=== PATIENT | male | born 1965 | race Hispanic/Latino ===

== ENCOUNTER 2018-03-22 12:04 | Emergency (ER) | payer OTHER ==
[~2018-03-22] VITALS: Ht 165.1 cm; Wt 99.8 kg
--- OUTSIDE RECORDS SUMMARY | 2018-03-22 12:06 | XMS REPORT | Clinical Summary ---
Author Author VIRGIL [facility] [place] Address Unknown Phone Unavailable Care Team Providers Care Professional Application Designer Name Role Phone Sharpless PCP Allergies Comments Active Allergy Reactions Severity Noted Date Dizzy and constipated Sitagliptin Other (See 06/24/2017 Comments) Medications End Date Status Medication Sig Dispensed Refills Start Date Active insulin glargine (LANTUS) Inject 25 0 100 unit/mL injection Units subcutaneousl y nightly Use as directed . Active lisinopril Take 10 mg by 0 (PRINIVIL,ZESTRIL) 10 MG mouth daily. tablet Active glyBURIDE-metFORMIN Take 2 0 (GLUCOVANCE) 5-500 mg per tablets by tablet mouth 2 (two) times daily with breakfast and dinner. Active nateglinide (STARLIX) 120 Take 120 mg 0 MG tablet by mouth 3 (three) times daily before meals. 06/26/2018 Active aspirin 81 MG EC tablet Take 1 tablet 0 (81 mg total) 8 by mouth daily. 2017 Discontinued metFORMIN (GLUMETZA) 1000 Take 1,000 mg 0 MG (MOD) 24 hr tablet by mouth 2 (two) times daily with breakfast and dinner. 2017 Discontinued glipiZIDE (GLUCOTROL) 5 Take 5 mg by 0 MG tablet mouth 3 (three) times daily with meals. Active Problems Problem Noted Date Atypical chest pain 2017 Uncontrolled type 2 diabetes mellitus with hyperglycemia, with long-term 06/24/2017 current use of insulin Encounters Care Team Description Date Type Specialty Luba, DO Lisa López Anita, MD Alagugurusamy, Rajkumar, MD Uncontrolled type 2 diabetes mellitus with hyperglycemia, with long-term current use of insulin (HCC) (Primary Dx); Uncontrolled hypertension; ACS (acute coronary syndrome) ([facility]) 06/24/2017 Emergency Cardiology - 2017 06/24/2017 Orders Only General Internal Medicine after 03/21/2017 Social History Date Tobacco Use Types Packs/Day Years Used Former Smoker Smokeless Tobacco: Never Used Sex Assigned at Date Recorded Not on file Industry Job Start Date Occupation Not on file Not on file Not on file Travel End Travel History Travel Start No recent travel history available. Last Filed Vital Signs Time Taken Vital Sign Reading 2017 3:46 PM CDT Blood Pressure 139/69 2017 3:46 PM CDT Pulse 57 2017 3:46 PM CDT Temperature 36.2 C (97.2 F) 2017 3:46 PM CDT Respiratory Rate 14 2017 3:46 PM CDT Oxygen Saturation 97% - Inhaled Oxygen - Concentration 06/24/2017 10:02 PM CDT Weight 96.6 kg (212 lb 16 oz) 06/24/2017 10:02 PM CDT Height 165.1 cm (5' 5") 06/24/2017 10:02 PM CDT Body Mass Index 35.44 Plan of Treatment Not on file Procedures Comments Procedure Name Priority Date/Time Associated Diagnosis RHYTHM STRIP - SCAN 06/29/2017 12:02 PM CDT POCT-GLUCOSE METER Routine 2017 3:52 PM CDT NM MYOCARDIAL PERFUSION Routine 2017 SPECT, PHARM(LEXISCAN) 3:10 PM CDT TREADMILL Routine 2017 TOLERANCE(NON-NUCLEAR 1:38 PM CDT TREADMILL) ECG 12-LEAD Routine 2017 1:35 PM CDT ECG 12-LEAD Routine 2017 1:35 PM CDT Procedure Note - Interface, External Ris In - 2017 1:48 PM CDT Ventricula r Rate 59 BPM Atrial Rate 59 BPM P-R Interval 154 ms QRS Duration 94 ms Q-T Interval 448 ms QTC Calculatio n(Bazett) 443 ms P Lincoln 34 degrees R Lincoln -3 degrees T Lincoln 44 degrees Sinus bradycardi a Otherwise normal ECG POCT-GLUCOSE METER Routine 2017 8:57 AM CDT CBC W/PLT COUNT & AUTO Routine 2017 DIFFERENTIAL 3:48 AM CDT TROPONIN I Routine 2017 3:48 AM CDT LIPID PANEL Routine 2017 3:48 AM CDT HEMOGLOBIN A1C Routine 2017 3:48 AM CDT CBC W/PLT COUNT & AUTO Routine 2017 DIFFERENTIAL 3:48 AM CDT PHOSPHORUS Routine 2017 3:48 AM CDT MAGNESIUM Routine 2017 3:48 AM CDT BASIC METABOLIC PANEL (7) Routine 2017 3:48 AM CDT POCT-GLUCOSE METER Routine 06/24/2017 10:30 PM CDT XR CHEST 2 VIEWS STAT 06/24/2017 4:08 PM CDT CBC W/PLT COUNT & AUTO STAT 06/24/2017 DIFFERENTIAL 4:01 PM CDT KETONE, BLOOD STAT 06/24/2017 4:01 PM CDT RAPID TROPONIN I STAT 06/24/2017 4:01 PM CDT B-TYPE NATRIURETIC FACTOR STAT 06/24/2017 (BNP) 4:01 PM CDT RAPID MYOGLOBIN STAT 06/24/2017 4:01 PM CDT RAPID CK-MB STAT 06/24/2017 4:01 PM CDT PT/APTT STAT 06/24/2017 4:01 PM CDT CBC W/PLT COUNT & AUTO STAT 06/24/2017 DIFFERENTIAL 4:01 PM CDT MAGNESIUM STAT 06/24/2017 4:01 PM CDT BASIC METABOLIC PANEL (7) STAT 06/24/2017 4:01 PM CDT ECG 12-LEAD STAT 06/24/2017 3:31 PM CDT after 03/21/2017 Results * RHYTHM STRIP - SCAN (06/29/2017 12:02 PM CDT) Narrative Performed At * POC-Glucose meter (2017 3:52 PM CDT) Only the most recent of 3 results within the time period is included. POC-Glucose Meter 258 (H)Comment: TESTED AT 70 - 110 mg/dL [facility] [address] [facility] [address] Specimen Blood Performing Organization Address City/State/Zipcode Phone Number [address] [address] [facility] * NM myocardial perfusion SPECT,pharm(Lexiscan) (2017 3:10 PM CDT) Narrative Performed At FINAL REPORT [facility] PROCEDURE:Rest/Stress MYOCARDIAL PERFUSION SPECT with regadenoson\\XA9\\ CPT CODE:05886 INDICATION:Cardiac risk stratification HISTORY:Cardiac risk factors: Diabetes, hypertension. Current cardiovascular-related medications: Aspirin, atorvastatin, lisinopril, Lovenox. PROTOCOL:10.4 mCi of Tc-99m sestamibi was injected iv at rest, and SPECT (tomographic) images were obtained. Also, 29.1 mCi of Tc-99m sestamibi was injected iv at expected peak pharmacologic effect, and gated SPECT images were obtained. PRELIMINARY STRESS TEST DATA FROM NONINVASIVE CARDIOLOGY: Pharmacologic stress was by 10-second iv infusion of 0.4 mg of regadenoson. Radiotracer was injected 30 seconds after start of stress. Heart rate was 59 beats/min at rest and 80 beats/min (47 % of MPHR) at tracer injection. BP was 130/83 mmHg at rest and 120/60 mmHg at tracer injection. Stress was stopped for predetermined endpoint. The patient experienced headaches, flushing, dyspnea; treatment was not required. Preliminary ECG evaluation revealed sinus bradycardia at rest and no ischemic changes with stress. (Final ECG interpretation and other stress and monitoring data are reported separately by Cardiology.) IMAGING FINDINGS:Study quality is good. Images obtained after rest and stress injections show normal LV activity. LV and RV volumes appear normal. Gated images obtained at rest after stress show normal LV wall motion and thickening. QGS LVEF is >70%. IMPRESSION: 1. Normal study.2. Appropriate pharmacologic stress. 3. Normal myocardial perfusion.4. Normal resting LV function.5. Normal extracardiac tracer distribution.6. No previous [facility] study for comparison. NONINVASIVE RISK STRATIFICATION: The above findings are considered low risk (<1% annual or MT) based on the following criterion: - Normal or small myocardial perfusion defect at rest or with stress encumbering <5% of the myocardium - Normal stress or no change of limited resting wall motion abnormalities during stress ([facility]. 2017;69(23):3042-41.) Signed: Michele Veliz MD Report Verified Date/Time:2017 17:24:12 Reading Location: [address] Reading Room Procedure Note Interface, External Ris In - 2017 5:26 PM CDT FINAL REPORT PROCEDURE: Rest/Stress MYOCARDIAL PERFUSION SPECT with regadenoson\\XA9\\ CPT CODE: 68745 INDICATION: Cardiac risk stratification HISTORY: Cardiac risk factors: Diabetes, hypertension. Current cardiovascular-related medications: Aspirin, atorvastatin, lisinopril, Lovenox. PROTOCOL: 10.4 mCi of Tc-99m sestamibi was injected iv at rest, and SPECT (tomographic) images were obtained. Also, 29.1 mCi of Tc-99m sestamibi was injected iv at expected peak pharmacologic effect, and gated SPECT images were obtained. PRELIMINARY STRESS TEST DATA FROM NONINVASIVE CARDIOLOGY: Pharmacologic stress was by 10-second iv infusion of 0.4 mg of regadenoson. Radiotracer was injected 30 seconds after start of stress. Heart rate was 59 beats/min at rest and 80 beats/min (47 % of MPHR) at tracer injection. BP was 130/83 mmHg at rest and 120/60 mmHg at tracer injection. Stress was stopped for predetermined endpoint. The patient experienced headaches, flushing, dyspnea; treatment was not required. Preliminary ECG evaluation revealed sinus bradycardia at rest and no ischemic changes with stress. (Final ECG interpretation and other stress and monitoring data are reported separately by Cardiology.) IMAGING FINDINGS: Study quality is good. Images obtained after rest and stress injections show normal LV activity. LV and RV volumes appear normal. Gated images obtained at rest after stress show normal LV wall motion and thickening. QGS LVEF is >70%. IMPRESSION: 1. Normal study. 2. Appropriate pharmacologic stress. 3. Normal myocardial perfusion. 4. Normal resting LV function. 5. Normal extracardiac tracer distribution. 6. No previous [facility] study for comparison. NONINVASIVE RISK STRATIFICATION: The above findings are considered low risk (<1% annual or MT) based on the following criterion: - Normal or small myocardial perfusion defect at rest or with stress encumbering <5% of the myocardium - Normal stress or no change of limited resting wall motion abnormalities during stress ([facility]. 2017;69(17):2212-41.) Signed: Michele Veliz MD Report Verified Date/Time: 2017 17:24:12 Reading Location: [address] Reading Room Performing Organization Address City/State/Zipcode Phone Number GE RIS * Treadmill tolerance(Non-Nuclear Treadmill) (2017 1:38 PM CDT) Narrative Performed At Protocol Name SustainX Time In Exercise Phase 00:01:00 Max. Systolic BP 120 mmHg Max Diastolic BP 60 mmHg Max Heart Rate 80 BPM Max Predicted Heart Rate 168 BPM Reason For Termination Predetermined end point Reason for Test Chest Pain Target HR Formula (220 - Age)*100% Arrhythmias none Resting ECG Normal sinus rhythm ST Changes No Significant Changes Overall Impression Indeterminate due to pharmacological stress Chest Pain none HR Response To Exercise BP Response To Exercise ASA Atorvastatin LISINOPRIL lovenox Confirmed by fellow Daysi Rodriguez ([id number]) on 2017 2:41:22 PM Confirmed by MD SERRATO JORGE ([id number]) on 07/01/2017 2:37:53 PM Procedure Note Interface, External Ris In - 07/01/2017 2:38 PM CDT Protocol Name [employer] Time In Exercise Phase 00:01:00 Max. Systolic BP 120 mmHg Max Diastolic BP 60 mmHg Max Heart Rate 80 BPM Max Predicted Heart Rate 168 BPM Reason For Termination Predetermined end point Reason for Test Chest Pain Target HR Formula (220 - Age)*100% Arrhythmias none Resting ECG Normal sinus rhythm ST Changes No Significant Changes Overall Impression Indeterminate due to pharmacological stress Chest Pain none HR Response To Exercise BP Response To Exercise ASA Atorvastatin LISINOPRIL lovenox Confirmed by fellow Daysi Rodriguez ([id number]) on 2017 2:41:22 PM Confirmed by MD SERRATO JORGE ([id number]) on 07/01/2017 2:37:53 PM Performing Organization Address [facility] Phone Number [employer] MUSE * ECG 12 lead (2017 1:35 PM CDT) Only the most recent of 2 results within the time period is included. Narrative Performed At Ventricular Rate 59 BPM GE MUSE Atrial Rate 59 BPM P-R Interval 154 ms QRS Duration 94 ms Q-T Interval 448 ms QTC Calculation(Bazett) 443 ms P Lincoln 34 degrees R Lincoln -3 degrees T Lincoln 44 degrees Sinus bradycardia Cannot exclude inferior infarct 24 JUN 2017 24 JUN 2017 Tall R waves are no longer seen in V2 Confirmed by MD GARCIA YOCHAI ([id number]) on 06/26/2017 5:59:35 AM Procedure Note Interface, External Ris In - 06/26/2017 5:59 AM CDT Ventricular Rate 59 BPM Atrial Rate 59 BPM P-R Interval 154 ms QRS Duration 94 ms Q-T Interval 448 ms QTC Calculation(Bazett) 443 ms P Lincoln 34 degrees R Lincoln -3 degrees T Lincoln 44 degrees Sinus bradycardia Cannot exclude inferior infarct 24 JUN 2017 24 JUN 2017 Tall R waves are no longer seen in V2 Confirmed by MD GARCIA YOCHAI ([id number]) on 06/26/2017 5:59:35 AM Performing Organization Address [facility] Phone Number [employer] * CBC with platelet count + automated diff (2017 3:48 AM CDT) Only the most recent of 2 results within the time period is included. WBC 10.5 3.5 - 10.5 K/L [facility] RBC 5.21 4.63 - 6.08 M/L [facility] Hemoglobin 13.7 13.7 - 17.5 GM/DL [facility] Hematocrit 42.4 40.1 - 51.0 % [facility] MCV 81.4 79.0 - 92.2 fL [facility] MCH 26.3 25.7 - 32.2 pg [facility] MCHC 32.3 32.3 - 36.5 GM/DL [facility] RDW 13.6 11.6 - 14.4 % [facility] Platelets 207 150 - 450 K/CU MM [facility] MPV 11.3 9.4 - 12.4 fL [facility] nRBC 0 0 - 0 /100 WBC [facility] % Neutros 50 % [facility] % Lymphs 41 % [facility] % Monos 6 % [facility] % Eos 3 % [facility] % Baso 1 % [facility] # Neutros 5.24 1.78 - 5.38 K/L [facility] # Lymphs 4.23 (H) 1.32 - 3.57 K/L [facility] # Monos 0.60 0.30 - 0.82 K/L [facility] # Eos 0.30 0.04 - 0.54 K/L [facility] # Baso 0.06 0.01 - 0.08 K/L [facility] Immature 0 0 - 1 % [facility] Granulocytes-[facility] Specimen Blood Performing Organization Address City/State/Zipcode Phone Number [facility] [address] [place] [address] MEDICAL CENTER * Troponin I (2017 3:48 AM CDT) Troponin I <0.01 0.00 - 0.03 ng/mL [facility] Specimen Blood Narrative Performed At Troponin I (TnI) levels must be interpreted in the context of the presenting [facility] symptoms and the clinical findings. Elevated TnI levels indicate myocardial [facility] damage, but are not specific for ischemic heart disease. Elevated TnI levels are seen in patients with other cardiac conditions (including myocarditis and congestive heart failure), and slight TnI elevations occur in patients with other conditions, including sepsis, renal failure, acidosis, acute neurological disease, and persistent tachyarrhythmia. Performing Organization Address City/[facility] Phone Number [address] * Phosphorus (2017 3:48 AM CDT) Phosphorus 2.7 2.3 - 4.7 mg/dL [facility] Specimen Blood Performing Organization Address [facility] Phone Number [address] * Magnesium (2017 3:48 AM CDT) Only the most recent of 2 results within the time period is included. Magnesium 1.9 1.6 - 2.6 mg/dL [facility] Specimen Blood Performing Organization Address [facility] Phone Number [address] * Hemoglobin A1c (2017 3:48 AM CDT) Hemoglobin A1C 13.1 (H) 4.3 - 6.1 % [facility] Specimen Blood Performing Organization Address [facility] Phone Number [address] * Lipid panel (2017 3:48 AM CDT) Triglycerides 195 mg/dL [facility] Cholesterol 188 mg/dL [facility] HDL 35 mg/dL [facility] LDL Calculated 114 mg/dL [facility] Specimen Blood Narrative Performed At Triglyceride Reference Range: [facility] Low Risk <150 [facility] [id number] High Risk 200-499 Very High Risk>=500 Cholesterol Reference Range: Low Risk <200 [id number] High Risk>240 HDL Cholesterol Reference Range: Low Risk >=60 High Risk <40 LDL Cholesterol Reference Range: Optimal<100 Near [id number] Very High >=190 Performing Organization Address City/State/Zipcode Phone Number [facility] [address] [place] [address] [facility] * Basic metabolic panel (2017 3:48 AM CDT) Only the most recent of 2 results within the time period is included. Sodium 136 136 - 145 meq/L [facility] Potassium 4.0 3.5 - 5.1 meq/L [facility] Chloride 107 98 - 107 meq/L [facility] CO2 22 22 - 29 meq/L [facility] BUN 16 7 - 21 mg/dL [facility] Creatinine 0.74 0.57 - 1.25 mg/dL [facility] Glucose 244 (H) 70 - 105 mg/dL [facility] Calcium 8.4 8.4 - 10.2 mg/dL [facility] EGFR 111Comment: ESTIMATED GFR IS mL/min/1.[address] [facility] NOT ACCURATE CREATININE [facility] CLEARANCE IN PREDICTING GLOMERULAR FILTRATION RATE. ESTIMATED GFR IS NOT APPLICABLE FOR DIALYSIS PATIENTS. Specimen Blood Performing Organization Address City/[facility]/Zipcode Phone Number [facility] [address] [place] [address] [facility] * XR chest 2 views (06/24/2017 4:08 PM CDT) Narrative Performed At FINAL REPORT [facility] EXAM: Frontal chest radiograph HISTORY PROVIDED: Chest pain COMPARISON: None available IMPRESSION: Lung volumes are low. There is elevation of the right hemidiaphragm. Left greater than right bibasilar opacities likely represent atelectasis, although pneumonitis should be excluded clinically. No pneumothorax or significant pleural fluid. The cardiomediastinal silhouette is within normal limits. No acute osseous abnormality. Signed: Desiree Fernández MD Report Verified Date/Time:06/24/2017 16:20:13 Reading Location: [facility] Reading Room Procedure Note Interface, External Ris In - 06/24/2017 4:22 PM CDT FINAL REPORT EXAM: Frontal chest radiograph HISTORY PROVIDED: Chest pain COMPARISON: None available IMPRESSION: Lung volumes are low. There is elevation of the right hemidiaphragm. Left greater than right bibasilar opacities likely represent atelectasis, although pneumonitis should be excluded clinically. No pneumothorax or significant pleural fluid. The cardiomediastinal silhouette is within normal limits. No acute osseous abnormality. Signed: Desiree Fernández MD Report Verified Date/Time: 06/24/2017 16:20:13 Reading Location: [facility] Reading Room Performing Organization Address City/[facility] Phone Number RIS * Rapid Myoglobin (06/24/2017 4:01 PM CDT) Rapid Myoglobin 34 <107 ng/mL [facility], [facility] Specimen Blood Performing Organization Address [facility] Phone Number [address] [address] [facility], [facility], [facility] * Rapid Troponin I (06/24/2017 4:01 PM CDT) Rapid Troponin I <0.05 <0.05 ng/mL [facility], [facility] Specimen Blood Performing Organization Address [facility] Phone Number [address] [place] [id number] [facility], [facility], [facility] * Rapid CK-MB (06/24/2017 4:01 PM CDT) Rapid CKMB <1.0 0.0 - 4.3 ng/mL [facility], [facility], [facility] Specimen Blood Performing Organization Address City/[facility] Phone Number [facility] [address] [place] [address] [facility], [facility] * PT/PTT (06/24/2017 4:01 PM CDT) Protime 9.7 (L) 9.8 - 12.0 seconds [facility] INR 0.9 <=5.9 [facility] PTT 23.5 (L) 25.8 - 34.5 seconds [facility] Specimen Blood Narrative Performed At RECOMMENDED COUMADIN/WARFARIN INR THERAPY RANGES [facility] STANDARD DOSE: 2.0 - 3.0 Includes: PROPHYLAXIS for venous thrombosis, [facility] systemic embolization; TREATMENT for venous thrombosis and/or pulmonary embolus. [facility] HIGH RISK: Target INR is 2.5-3.5 for patients with mechanical heart valves. [facility] C[facility], [facility] Performing Organization Address City/[facility] Centercode Phone Number [facility] [address] [place], [place] [phone] [facility], [facility], [facility] * B-type Natriuretic Factor (BNP) (06/24/2017 4:01 PM CDT) BNP 14 0 - 100 pg/mL [facility] Specimen Blood Performing Organization Address City/[facility]/Zipcode Phone Number [facility] [address] [place], [place] [id number] [facility], [facility] * Ketones, blood (06/24/2017 4:01 PM CDT) Ketones, Blood 0.2 <0.4 mmol/L [facility], [facility], [facility] Specimen Blood Performing Organization Address City/State/Zipcode Phone Number [facility] [address] [place] [address] [facility], [facility], [facility] after 03/21/2017 Insurance Payer Benefit Subscriber ID Type Phone Address Plan / Group [employer] - MGD CARE [employer] COH xxxxxxxxxxx HMO/POS NETWORK Advance Directives For more information, please contact: [facility] [address] [place], [place] [phone] Date Inactivated Comments Code Status Date Activated 2017 9:52 PM Full Code 2017 12:03 AM This code status was determined by: Patient
--- OUTSIDE RECORDS SUMMARY | 2018-03-22 12:07 | XMS REPORT ---
Author Author [facility] Address Unknown Phone Unavailable Care Team Providers Care Registered Nurse First Assistant Name Role Phone MT PORSHA [place] Unavailable Unavailable Problems This patient has no known problems. Allergies, Adverse Reactions, Alerts This patient has no known allergies or adverse reactions. Medications This patient has no known medications. Results Test Description Test Time Test Comments Text Results Atomic Results Result Comments POCT-GLUCOSE METER 2017 18:44:00 POC-GLUCOSE METER (Scholrly) (test potz=3262) 258 mg/dL 70-110 TESTED AT [facility] [address] [facility] [address] [facility], MULTI, PHARM, [id number] 17:24:00FINAL REPORT PROCEDURE: Rest/Stress MYOCARDIAL PERFUSION SPECT with regadenoson\XA9\ CPT CODE: 47496 INDICATION: Cardiac risk stratification HISTORY: Cardiac risk factors: Diabetes, hypertension. Current cardiovascular-related medications: Aspirin, atorvastatin, lisinopril, Lovenox. PROTOCOL: 10.4 mCi of Tc-99m sestamibi was injected iv at rest, and SPECT (tomographic) images were obtained. Also, 29.1 mCi of Tc-99m sestamibi was injected iv at expected peak pharmacologic effect, and gated SPECT images were obtained. PRELIMINARY STRESS TEST DATA FROM NONINVASIVE CARDIOLOGY: Ph armacologic stress was by 10-second iv infusion of 0.4 mg of regadenoson. Radiot racer was injected 30 seconds after start of stress. Heart rate was 59 beats/min at rest and 80 beats/min (47 % of MPHR) at tracer injection. BP was 130/83 mmHg at rest and 120/60 mmHg at tracer injection. Stress was stopped for predetermin ed endpoint. The patient experienced headaches, flushing, dyspnea; [...] volumes appear normal. Gated images obtained at re st after stress show normal LV wall motion and thickening. QGS LVEF is >70%. IMPRESSION: 1. Normal study. 2. Appropriate pharmacologic stress. 3. Normal myocardial perfusion. 4. Normal resting LV function. 5. Normal extracardiac tracer distribution. 6. No previous [facility] study for comparison. NONINVASIVE RISK STRATIFICATION: The above findings are considered low risk (<1% annual or PA) based on the following criterion:- Normal or small myocardial perfusion defect at rest or with stress encumbering <5% of the myocardium- Normal stress or no change of limited resting wall motion abnormalities during stress(JACC. 2017;69):2212-41.) Signed: Michele Veliz MDReport Verified Date/Time: 2017 17:24:12 Reading Location: [address] Reading Room GLOBIN [id number] 09:39:00* Test Item Value Reference Range Comments HEMOGLOBIN A1C (BEAKER) (test tlfg=659) 13.1 % 4.3-6.1 POCT-GLUCOSE [id number] 08:59:00* Test Item Value Reference Range Comments POC-GLUCOSE METER (BEAKER) (test sncl=2305) 237 mg/dL 70-110 TESTED AT [facility] [address] [facility] [address] TROPONIN [id number] 04:55:00* Test Item Value Reference Range Comments TROPONIN I (BEAKER) (test rdkv=473) < ng/mL 0.00-0.03 Troponin I (TnI) levels must be interpreted in the context of the presenting sym ptoms and the clinical findings. Elevated TnI levels indicate myocardial damage, but are not specific for ischemic heart disease. Elevated TnI levels are seen in patients with other cardiac conditions (including myocarditis and congestive h eart failure), and slight TnI elevations occur in patients with other conditions , including sepsis, renal failure, acidosis, acute neurological disease, and per sistent tachyarrhythmia.[id number] 04:54:00* Test Item Value Reference Range Comments PHOSPHORUS (BEAKER) (test vgxr=349) 2.7 mg/dL 2.3-4.7 [id number] 04:54:00* Test Item Value Reference Range Comments MAGNESIUM (BEAKER) (test xnvb=549) 1.9 mg/dL 1.6-2.6 BASIC METABOLIC [id number] 04:54:00* Test Item Value Reference Range Comments SODIUM (BEAKER) (test tovp=278) 136 meq/L 136-145 POTASSIUM (BEAKER) (test ahca=710) 4.0 meq/L 3.5-5.1 CHLORIDE (BEAKER) (test rrqs=904) 107 meq/L 98-107 CO2 (BEAKER) (test kksd=399) 22 meq/L 22-29 BLOOD UREA NITROGEN (BEAKER) (test itil=631) 16 mg/dL 7-21 CREATININE (BEAKER) (test qhwq=173) 0.74 mg/dL 0.57-1.25 GLUCOSE RANDOM (BEAKER) (test qnbu=196) 244 mg/dL 70-105 CALCIUM (BEAKER) (test ifob=985) 8.4 mg/dL 8.4-10.2 EGFR (BEAKER) (test rlvv=5909) 111 mL/min/1.73 sq m ESTIMATED GFR IS NOT ACCURATE CREATININE CLEARANCE IN PREDICTING GLOMERULAR FILTRATION RATE. ESTIMATED GFR IS NOT APPLICABLE FOR DIALYSIS PATIENTS. LIPID [id number] 04:54:00* Test Item Value Reference Range Comments TRIGLYCERIDES (BEAKER) (test ejxj=556) 195 mg/dL CHOLESTEROL (BEAKER) (test jrym=884) 188 mg/dL HDL CHOLESTEROL (BEAKER) (test eswe=476) 35 mg/dL LDL CHOLESTEROL CALCULATED (BEAKER) (test vomg=446) 114 mg/dL Triglyceride Reference Range: Low Risk <150 Borderline 150-199 High Risk 200-499 Very High Risk >=500Cholesterol Reference Range: Low Risk <200 Borderline 200-239 High Risk >240HDL Cholesterol Reference Range: Low Risk >=60 High Risk <40LDL Cholesterol Reference Range: Optimal <100 Near Optimal 100-129 Borderline 130-159 High 160-189 Very High >=190 CBC W/PLT COUNT & AUTO [id number] 04:29:00* Test Item Value Reference Range Comments WHITE BLOOD CELL COUNT (BEAKER) (test wwih=524) 10.5 K/ L 3.5-10.5 RED BLOOD CELL COUNT (BEAKER) (test grqs=194) 5.21 M/ L 4.63-6.08 HEMOGLOBIN (BEAKER) (test zxxa=411) 13.7 GM/DL 13.7-17.5 HEMATOCRIT (BEAKER) (test sjjd=592) 42.4 % 40.1-51.0 MEAN CORPUSCULAR VOLUME (BEAKER) (test vibr=488) 81.4 fL 79.0-92.2 MEAN CORPUSCULAR HEMOGLOBIN (BEAKER) (test rlgy=787) 26.3 pg 25.7-32.2 MEAN CORPUSCULAR HEMOGLOBIN CONC (BEAKER) (test vylt=159) 32.3 GM/DL 32.3-36.5 RED CELL DISTRIBUTION WIDTH (BEAKER) (test erae=686) 13.6 % 11.6-14.4 PLATELET COUNT (BEAKER) (test dvrl=837) 207 K/CU MM 150-450 MEAN PLATELET VOLUME (BEAKER) (test bidc=208) 11.3 fL 9.4-12.4 NUCLEATED RED BLOOD CELLS (BEAKER) (test erjq=430) 0 /100 WBC 0-0 NEUTROPHILS RELATIVE PERCENT (BEAKER) (test hrvm=386) 50 % LYMPHOCYTES RELATIVE PERCENT (BEAKER) (test xfje=900) 41 % MONOCYTES RELATIVE PERCENT (BEAKER) (test ylpm=100) 6 % EOSINOPHILS RELATIVE PERCENT (BEAKER) (test gogd=786) 3 % BASOPHILS RELATIVE PERCENT (BEAKER) (test wbnm=981) 1 % NEUTROPHILS ABSOLUTE COUNT (BEAKER) (test knte=428) 5.24 K/ L 1.78-5.38 LYMPHOCYTES ABSOLUTE COUNT (BEAKER) (test iwkv=327) 4.23 K/ L 1.32-3.57 MONOCYTES ABSOLUTE COUNT (BEAKER) (test fgsz=259) 0.60 K/ L 0.30-0.82 EOSINOPHILS ABSOLUTE COUNT (BEAKER) (test jmvz=253) 0.30 K/ L 0.04-0.54 BASOPHILS ABSOLUTE COUNT (BEAKER) (test iitv=514) 0.06 K/ L 0.01-0.08 IMMATURE GRANULOCYTES-RELATIVE PERCENT (BEAKER) (test kkqe=3775) 0 % 0-1 POCT-GLUCOSE [id number] 22:32:00* Test Item Value Reference Range Comments POC-GLUCOSE METER (BEAKER) (test dyox=7173) 229 mg/dL 70-110 TESTED AT [facility] [address] [facility] [address] RAPID [id number] 16:25:00* Test Item Value Reference Range Comments RAPID CKMB (BEAKER) (test lmpw=2957) < ng/mL 0.0-4.3 RAPID [id number] 16:25:00* Test Item Value Reference Range Comments RAPID MYOGLOBIN (BEAKER) (test flnc=0088) 34 ng/mL <107 RAPID TROPONIN [id number] 16:25:00* Test Item Value Reference Range Comments RAPID TROPONIN I (BEAKER) (test whgy=4203) < ng/mL <0.05 B-TYPE NATRIURETIC FACTOR (BNP)2017-06-24 16:24:00* Test Item Value Reference Range Comments B-TYPE NATRIURETIC PEPTIDE (BEAKER) (test ejyn=499) 14 pg/mL 0-100 PT/[id number] 16:23:00* Test Item Value Reference Range Comments PROTIME (BEAKER) (test hsyi=726) 9.7 seconds 9.8-12.0 INR (BEAKER) (test spof=894) 0.9 <=5.9 PARTIAL THROMBOPLASTIN TIME (BEAKER) (test udcu=655) 23.5 seconds 25.8-34.5 RECOMMENDED COUMADIN/WARFARIN INR THERAPY RANGESSTANDARD DOSE: 2.0 - 3.0 Inclu lynn: PROPHYLAXIS for venous thrombosis, systemic embolization; TREATMENT for roberto ous thrombosis and/or pulmonary embolus.HIGH RISK: Target INR is 2.5-3.5 for pat ients with mechanical heart valves.[id number] 16:21:00* Test Item Value Reference Range Comments MAGNESIUM (BEAKER) (test kkhd=656) 1.8 mg/dL 1.5-3.0 BASIC METABOLIC [id number] 16:21:00* Test Item Value Reference Range Comments SODIUM (BEAKER) (test fyot=085) 135 meq/L 135-148 POTASSIUM (BEAKER) (test eyba=667) 4.2 meq/L 3.6-5.5 CHLORIDE (BEAKER) (test cqxp=677) 99 meq/L 98-106 CO2 (BEAKER) (test vqiv=848) 27 meq/L 24-32 BLOOD UREA NITROGEN (BEAKER) (test knnt=092) 18 mg/dL 10-26 CREATININE (BEAKER) (test pkfm=189) 0.93 mg/dL 0.50-1.20 GLUCOSE RANDOM (BEAKER) (test jlog=502) 322 mg/dL 70-110 CALCIUM (BEAKER) (test qifw=553) 8.7 mg/dL 8.5-10.5 EGFR (BEAKER) (test eqqg=6923) 86 mL/min/1.73 sq m ESTIMATED GFR IS NOT ACCURATE CREATININE CLEARANCE IN PREDICTING GLOMERULAR FILTRATION RATE. ESTIMATED GFR IS NOT APPLICABLE FOR DIALYSIS PATIENTS. RAD, CHEST, 2 [id number] 16:20:00Reason for exam:->CHEST PAINpatient c/o left sided chest wall pain radiating to the left arm onset 3daysFINAL REPORT EXAM: Frontal chest radiograph HISTORY PROVIDED: Chest pain COMPARISON: None available IMPRESSION:Lung volumes are low. There is elevation of the right hemidiaphragm. Left greater than right bibasilar opa cities likely represent atelectasis, although pneumonitis should be excluded cli nically. No pneumothorax or significant pleural fluid. The cardiomediastinal ravinder houette is within normal limits. No acute osseous abnormality. Signed: Desiree Quinteroeport Verified Date/Time: 06/24/2017 16:20:13 Reading Location: [facility] Reading Room Electronically signed by: DESIREE ROBERT on 04:20 PM CBC W/PLT COUNT & AUTO [id number] 16:17:00* Test Item Value Reference Range Comments WHITE BLOOD CELL COUNT (BEAKER) (test gqjx=928) 10.2 10e3/ L 4.0-10.0 RED BLOOD CELL COUNT (BEAKER) (test wspa=558) 5.66 10e6/ L 4.20-5.80 HEMOGLOBIN (BEAKER) (test mrdx=612) 14.8 g/dL 13.0-16.8 HEMATOCRIT (BEAKER) (test rakn=323) 44.3 % 40.0-50.0 MEAN CORPUSCULAR VOLUME (BEAKER) (test hvpd=466) 78.3 fL 82.0-98.0 MEAN CORPUSCULAR HEMOGLOBIN (BEAKER) (test hlno=080) 26.1 pg 27.0-33.0 MEAN CORPUSCULAR HEMOGLOBIN CONC (BEAKER) (test lsft=801) 33.3 g/dL 32.0-36.0 RED CELL DISTRIBUTION WIDTH (BEAKER) (test kpck=786) 13.5 % 10.3-14.2 PLATELET COUNT (BEAKER) (test nmjb=735) 217 10e3/ L 150-430 MEAN PLATELET VOLUME (BEAKER) (test jfln=280) 8.6 fL 6.5-10.5 NEUTROPHILS RELATIVE PERCENT (BEAKER) (test frmg=573) 56 % LYMPHOCYTES RELATIVE PERCENT (BEAKER) (test ymet=596) 34 % MONOCYTES RELATIVE PERCENT (BEAKER) (test etca=220) 7 % EOSINOPHILS RELATIVE PERCENT (BEAKER) (test lvzp=787) 3 % BASOPHILS RELATIVE PERCENT (BEAKER) (test tvav=893) 1 % NEUTROPHILS ABSOLUTE COUNT (BEAKER) (test lscg=400) 5.67 10e3/ L 1.80-8.00 LYMPHOCYTES ABSOLUTE COUNT (BEAKER) (test cnbs=238) 3.49 10e3/ L 1.48-4.50 MONOCYTES ABSOLUTE COUNT (BEAKER) (test ogcz=766) 0.67 10e3/ L 0.00-1.30 EOSINOPHILS ABSOLUTE COUNT (BEAKER) (test aewp=360) 0.26 10e3/ L 0.00-0.50 BASOPHILS ABSOLUTE COUNT (BEAKER) (test fdzn=743) 0.08 10e3/ L 0.00-0.20 KETONE, [id number] 16:08:00* Test Item Value Reference Range Comments KETONES, BLOOD (BEAKER) (test znzz=8349) 0.2 mmol/L <0.4
--- OUTSIDE RECORDS SUMMARY | 2018-03-22 12:07 | XMS REPORT | Summary of Care ---
Author Author [facility] Organization [facility] Address Unknown Phone Unavailable Encounter ROSARIO Bermudez(LAKESHA) [id number] Date(s): 05/03/16 - 05/04/16 [facility] [address] [place] [address]- Discharge Disposition: Home or Self Care Attending Physician: Dhiraj Chris MD Admitting Physician: Dhiraj Chris MD Vital Signs 1 2 3 Most recent to oldest [Reference Range]: 165.1 cm (05/04/16 3:11 AM) Height 98.0 DegF (05/04/16 11:13 AM) 97.8 DegF (05/04/16 7:39 AM) 98 DegF (05/04/16 4:05 AM) Temperature Oral [96.4-99.1 DegF] 132/81 mmHg (05/04/16 11:13 AM) 118/74 mmHg (05/04/16 7:39 AM) 145/80 mmHg *HI* (05/04/16 4:00 AM) Blood Pressure [90-140/60-90 mmHg] 18 BRMIN (05/04/16 11:13 AM) 18 BRMIN (05/04/16 7:39 AM) 16 BRMIN (05/04/16 4:05 AM) Respiratory Rate [14-20 BRMIN] 59 bpm *LOW* (05/04/16 11:13 AM) 52 bpm *LOW* (05/04/16 7:39 AM) 63 bpm (05/04/16 4:00 AM) Peripheral Pulse Rate [60-100 bpm] 93.18 kg (05/04/16 9:04 AM) 93.182 kg (05/04/16 3:11 AM) 93.182 kg (05/03/16 9:29 PM) Weight 34.19 m2 (05/04/16 3:11 AM) Body Mass Index Problem List Condition Effective Dates Status Health Status Informant Diabetes(Confirmed) Resolved HTN (hypertension) Resolved with goal to be determined(Confirmed ) Allergies, Adverse Reactions, Alerts Substance Reaction Severity Status Januvia Active Medications acetaminophen 650 mg, 2 tab, Route: PO, Drug form: TAB, Q4H, Dosing Weight 93.182, kg, PRN Hea dache 1-5, Start date: 05/04/16 1:32:00 TEAM TRUCK DRIVER, Duration: 30 day, Stop date: 1:31:00 TEAM TRUCK DRIVER Notes: Do not exceed 4 gm/day. (Same as: Tylenol) Start Date: 05/04/16 Stop Date: 05/04/16 Status: Discontinued aspirin 325 mg tablet 325 mg=1 tab, PO, Daily, 0 Refill(s) Start Date: 05/04/16 Status: Ordered aspirin 325 mg tablet 325 mg, 1 tab, Route: PO, Drug form: TAB, ONCE, Dosing Weight 93.182, kg, Priori ty: STAT, Start date: 05/04/16 0:23:00 TEAM TRUCK DRIVER, Stop date: 05/04/16 0:23:00 TEAM TRUCK DRIVER Notes: Take with food. Start Date: 05/04/16 Stop Date: 05/04/16 Status: Completed aspirin 325 mg tablet 325 mg, 1 tab, Route: PO, Drug form: TAB, Daily, Dosing Weight 93.182, kg, Start date: 05/04/16 9:00:00 TEAM TRUCK DRIVER, Duration: 30 day, Stop date: 06/02/16 9:00:00 TEAM TRUCK DRIVER Notes: Take with food. Start Date: 05/04/16 Stop Date: 05/04/16 Status: Discontinued Dextrose 50% Syringe 25 gm, 50 mL, Route: IVP, Drug Form: INJ, Dosing Weight 93.182, kg, PRN, PRN Blo od Glucose Results, Start date: 05/04/16 1:34:00 TEAM TRUCK DRIVER, Duration: 30 day, Stop letha e: 06/03/16 1:33:00 TEAM TRUCK DRIVER Start Date: 05/04/16 Stop Date: 05/04/16 Status: Discontinued Dextrose 50% Syringe 12.5 gm, 25 mL, Route: IVP, Drug Form: INJ, Dosing Weight 93.182, kg, PRN, PRN B lood Glucose Results, Start date: 05/04/16 1:34:00 TEAM TRUCK DRIVER, Duration: 30 day, Stop d ate: 06/03/16 1:33:00 TEAM TRUCK DRIVER Start Date: 05/04/16 Stop Date: 05/04/16 Status: Discontinued DiaBeta 5 mg, 1 tab, Route: PO, Drug form: TAB, BID-Meals, Start date: 05/04/16 8:00:00 TEAM TRUCK DRIVER, Duration: 30 day, Stop date: 06/02/16 17:00:00 TEAM TRUCK DRIVER Notes: (Same as: Micronase, Diabeta) Take with meals. Start Date: 05/04/16 Stop Date: 05/04/16 Status: Discontinued glucagon 1 mg, Route: IM, Drug form: PDR/INJ, PRN, Dosing Weight 93.182, kg, PRN Blood Gl ucose Results, Start date: 05/04/16 1:34:00 TEAM TRUCK DRIVER, Duration: 30 day, Stop date: 1:33:00 TEAM TRUCK DRIVER Start Date: 05/04/16 Stop Date: 05/04/16 Status: Discontinued Glucophage 500 mg, 1 tab, Route: PO, Drug form: TAB, BID-Meals, Start date: 05/04/16 8:00:0 0 TEAM TRUCK DRIVER, Duration: 30 day, Stop date: 06/02/16 17:00:00 TEAM TRUCK DRIVER Notes: (Same as: Glucophage) Take with meal Start Date: 05/04/16 Stop Date: 05/04/16 Status: Discontinued glyBURIDE-metformin 5 mg-500 mg oral tablet 2 tab, PO, BID-Meals, # 60 tab, 0 Refill(s) Start Date: 05/04/16 Status: Ordered glyBURIDE-metformin 5 mg-500 mg oral tablet 2 tab, Route: PO, Drug Form: TAB, Dosing Weight 93.182, kg, BID-Meals, Start letha e: 05/04/16 8:00:00 TEAM TRUCK DRIVER, Duration: 30 day, Stop date: 06/02/16 17:00:00 TEAM TRUCK DRIVER Start Date: 05/04/16 Stop Date: 05/04/16 Status: Deleted insulin aspart 2 unit, 0.02 mL, Route: SUB-Q, Drug form: SOLN, TID-Before Meals, Dosing Weight 93.182, kg, PRN Blood Glucose Results, Start date: 05/04/16 1:34:00 TEAM TRUCK DRIVER, Duratio n: 30 day, Stop date: 06/03/16 1:33:00 TEAM TRUCK DRIVER Notes: Roll in palms of hands gently; Do not shake vigorously. (Same as: NovoCOLEEN Sandhu)"single patient use only"WASTE: F/P - Black; E - Municipal Trash Bin Stable f or 28 days at room temperature.Expires in days from Date Start Date: 05/04/16 Stop Date: 05/04/16 Status: Discontinued insulin aspart 6 unit, 0.06 mL, Route: SUB-Q, Drug form: SOLN, TID-Before Meals, Dosing Weight 93.182, kg, PRN Blood Glucose Results, Start date: 05/04/16 1:34:00 TEAM TRUCK DRIVER, Duratio n: 30 day, Stop date: 06/03/16 1:33:00 TEAM TRUCK DRIVER Notes: Roll in palms of hands gently; Do not shake vigorously. (Same as: Terri Sandhu)"single patient use only"WASTE: F/P - Black; E - Municipal Trash Bin Stable f or 28 days at room temperature.Expires in days from Date Start Date: 05/04/16 Stop Date: 05/04/16 Status: Discontinued insulin aspart 4 unit, 0.04 mL, Route: SUB-Q, Drug form: SOLN, TID-Before Meals, Dosing Weight 93.182, kg, PRN Blood Glucose Results, Start date: 05/04/16 1:34:00 TEAM TRUCK DRIVER, Duratio n: 30 day, Stop date: 06/03/16 1:33:00 TEAM TRUCK DRIVER Notes: Roll in palms of hands gently; Do not shake vigorously. (Same as: NovoCOLEEN Sandhu)"single patient use only"WASTE: F/P - Black; E - Municipal Trash Bin Stable f or 28 days at room temperature.Expires in days from Date Start Date: 05/04/16 Stop Date: 05/04/16 Status: Discontinued insulin aspart 10 unit, 0.1 mL, Route: SUB-Q, Drug form: SOLN, TID-Before Meals, Dosing Weight 93.182, kg, PRN Blood Glucose Results, Start date: 05/04/16 1:34:00 TEAM TRUCK DRIVER, Duratio n: 30 day, Stop date: 06/03/16 1:33:00 TEAM TRUCK DRIVER Notes: Roll in palms of hands gently; Do not shake vigorously. (Same as: NovoCOLEEN G)"single patient use only"WASTE: F/P - Black; E - Municipal Trash Bin Stable f or 28 days at room temperature.Expires in days from Date Start Date: 05/04/16 Stop Date: 05/04/16 Status: Discontinued insulin aspart 8 unit, 0.08 mL, Route: SUB-Q, Drug form: SOLN, TID-Before Meals, Dosing Weight 93.182, kg, PRN Blood Glucose Results, Start date: 05/04/16 1:34:00 TEAM TRUCK DRIVER, Duratio n: 30 day, Stop date: 06/03/16 1:33:00 TEAM TRUCK DRIVER Notes: Roll in palms of hands gently; Do not shake vigorously. (Same as: NovoCOLEEN G)"single patient use only"WASTE: F/P - Black; E - Municipal Trash Bin Stable f or 28 days at room temperature.Expires in days from Date Start Date: 05/04/16 Stop Date: 05/04/16 Status: Discontinued Insulin regular 5 unit, 0.05 mL, Route: IVP, Drug form: INJ, ONCE, Dosing Weight 93.182, kg, Marianna ority: STAT, Start date: 05/04/16 0:23:00 TEAM TRUCK DRIVER, Stop date: 05/04/16 0:23:00 TEAM TRUCK DRIVER Notes: (Same as: Humulin R and NovoLIN R)WASTE: F/P - Black; E - Municipal Trash Bin (Do not shake) Start Date: 05/04/16 Stop Date: 05/04/16 Status: Completed lisinopril 10 mg, 2 tab, Route: PO, Drug form: TAB, Daily, Dosing Weight 93.182, kg, Start date: 05/04/16 9:00:00 TEAM TRUCK DRIVER, Duration: 30 day, Stop date: 06/02/16 9:00:00 TEAM TRUCK DRIVER Notes: (Same as: Prinivil, Zestril) Start Date: 05/04/16 Stop Date: 05/04/16 Status: Discontinued lisinopril 40 mg, 2 tab, Route: PO, Drug form: TAB, Daily, Dosing Weight 93.182, kg, Start date: 05/04/16 9:00:00 TEAM TRUCK DRIVER, Duration: 30 day, Stop date: 06/02/16 9:00:00 TEAM TRUCK DRIVER Notes: (Same as: Prinivil, Zestril) Start Date: 05/04/16 Stop Date: 05/04/16 Status: Discontinued lisinopril 10 mg oral tablet 10 mg=1 tab, PO, Daily, # 30 tab, 0 Refill(s) Start Date: 05/04/16 Status: Ordered morphine Sulfate 4 mg, 1 mL, Route: IV, Drug form: SOLN, ONCE, Dosing Weight 93.182, kg, Priority : STAT, Start date: 05/04/16 0:23:00 TEAM TRUCK DRIVER, Stop date: 05/04/16 0:23:00 TEAM TRUCK DRIVER Notes: (Same as:MORPhine Sulfate) Start Date: 05/04/16 Stop Date: 05/04/16 Status: Completed morphine Sulfate 4 mg, 1 mL, Route: IVP, Drug form: SOLN, Q2H, Dosing Weight 93.182, kg, PRN Pain Score 7-10, Start date: 05/04/16 1:32:00 TEAM TRUCK DRIVER, Duration: 30 day, Stop date: 05/15 04/29 1:31:00 TEAM TRUCK DRIVER Notes: (Same as:MORPhine Sulfate) Start Date: 05/04/16 Stop Date: 05/04/16 Status: Discontinued morphine Sulfate 2 mg, 1 mL, Route: IVP, Drug form: INJ, Q2H, Dosing Weight 93.182, kg, PRN Pain Score 4-6, Start date: 05/04/16 1:32:00 TEAM TRUCK DRIVER, Duration: 30 day, Stop date: 1:31:00 TEAM TRUCK DRIVER Notes: (Same as:MORPhine Sulfate) Start Date: 05/04/16 Stop Date: 05/04/16 Status: Discontinued nateglinide 120 mg, 1 tab, Route: PO, Drug form: TAB, TID-Before Meals, Dosing Weight 93.182 , kg, Start date: 05/04/16 7:30:00 TEAM TRUCK DRIVER, Duration: 30 day, Stop date: 06/02/16 16 :30:00 TEAM TRUCK DRIVER Notes: Starlix - anti-diabetic agentTake Nateglinide 10 minutes before each mili l (Same as: Starlix) Start Date: 05/04/16 Stop Date: 05/04/16 Status: Discontinued nateglinide 120 mg oral tablet 120 mg=1 tab, PO, TID-Before Meals, # 270 tab, 0 Refill(s) Start Date: 05/04/16 Status: Ordered nitroglycerin SL Tab 0.4 mg, 1 tab, Route: SL, Drug form: TAB, Q5Min, Dosing Weight 93.182, kg, PRN C hest Pain, Start date: 05/04/16 1:32:00 TEAM TRUCK DRIVER, Duration: 3 doses or times, Stop da te: Limited # of times Notes: (Same as:Nitroquick, Nitrostat)"Do Not Crush" Sublingual tablet Start Date: 05/04/16 Stop Date: 05/04/16 Status: Discontinued ondansetron 4 mg, 1 tab, Route: PO, Drug form: TAB, Q8H, Dosing Weight 93.182, kg, PRN Nause a & Vomiting, Start date: 05/04/16 1:32:00 TEAM TRUCK DRIVER, Duration: 30 day, Stop date: 06/03/16 1:31:00 TEAM TRUCK DRIVER Notes: (Same as: Zofran) Start Date: 05/04/16 Stop Date: 05/04/16 Status: Discontinued Saline Flush 0.9% 10 ml, Route: IVP, Drug Form: INJ, Dosing Weight 93.182, kg, Q12H, Start date: 0 05/04/16 9:00:00 TEAM TRUCK DRIVER, Duration: 30 day, Stop date: 06/02/16 21:00:00 TEAM TRUCK DRIVER Notes: (Same as: BD Posiflush) Start Date: 05/04/16 Stop Date: 05/04/16 Status: Discontinued Saline Flush 0.9% 10 ml, Route: IVP, Drug Form: INJ, Dosing Weight 93.182, kg, PRN, PRN Line Flush , Start date: 05/04/16 1:32:00 TEAM TRUCK DRIVER, Duration: 30 day, Stop date: 06/03/16 1:31:0 0 TEAM TRUCK DRIVER Notes: (Same as: BD Posiflush) Start Date: 05/04/16 Stop Date: 05/04/16 Status: Discontinued Saline Flush 0.9% 10 mL, Route: IVP, Drug Form: INJ, Dosing Weight 93.182, kg, PRN, PRN Line Flush , Start date: 05/03/16 21:44:00 TEAM TRUCK DRIVER, Duration: 30 day, Stop date: 06/02/16 21:43 :00 TEAM TRUCK DRIVER Notes: (Same as: BD Posiflush) Start Date: 05/03/16 Stop Date: 05/04/16 Status: Discontinued temazepam 15 mg, 1 cap, Route: PO, Drug form: CAP, Bedtime, Dosing Weight 93.182, kg, PRN Insomnia, Start date: 05/04/16 1:32:00 TEAM TRUCK DRIVER, Duration: 30 day, Stop date: 7 1:31:00 TEAM TRUCK DRIVER Notes: (Same As: Restoril) Start Date: 05/04/16 Stop Date: 05/04/16 Status: Discontinued Zofran 8 mg, Route: IVP, Drug form: INJ, ONCE, Dosing Weight 93.182, kg, Priority: STAT , Start date: 05/04/16 0:23:00 TEAM TRUCK DRIVER, Stop date: 05/04/16 0:23:00 TEAM TRUCK DRIVER Start Date: 05/04/16 Stop Date: 05/04/16 Status: Completed Results ELECTROLYTES 1 2 3 Most recent to oldest [Reference Range]: 136 mEq/L (05/03/16 9:58 PM) Sodium Lvl [135-145 mEq/L] 3.9 mEq/L (05/03/16 9:58 PM) Potassium Lvl [3.5-5.1 mEq/L] 102 mEq/L (05/03/16 9:58 PM) Chloride Lvl [95-109 mEq/L] 26 mEq/L (05/03/16 9:58 PM) CO2 [24-32 mEq/L] 11.9 mEq/L (05/03/16 9:58 PM) AGAP [10.0-20.0 mEq/L] CHEM PANEL 1 2 3 Most recent to oldest [Reference Range]: 0.84 mg/dL (05/03/16 9:58 PM) Creatinine Lvl [0.50-1.40 mg/dL] 102 mL/min/1.73m2 1 *NA* (05/03/16 9:58 PM) eGFR 12 mg/dL (05/03/16 9:58 PM) BUN [7-22 mg/dL] 14 (05/03/16 9:58 PM) B/C Ratio [6-25] 333 mg/dL *HI* (05/03/16 9:58 PM) Glucose Lvl [70-99 mg/dL] 7.4 g/dL (05/03/16 9:58 PM) Total Protein [6.4-8.4 g/dL] 3.6 g/dL (05/03/16 9:58 PM) Albumin Lvl [3.5-5.0 g/dL] 3.8 g/dL (05/03/16 9:58 PM) Globulin [2.7-4.2 g/dL] 0.9 (05/03/16 9:58 PM) A/G Ratio [0.7-1.6] 8.9 mg/dL (05/03/16 9:58 PM) Calcium Lvl [8.5-10.5 mg/dL] 47 unit/L (05/03/16 9:58 PM) ALT [0-65 unit/L] 15 unit/L (05/03/16 9:58 PM) AST [0-37 unit/L] 103 unit/L (05/03/16 9:58 PM) Alk Phos [39-136 unit/L] 0.3 mg/dL (05/03/16 9:58 PM) Bili Total [0.2-1.3 mg/dL] 1Result Comment: The eGFR is calculated using the CKD-EPI formula. In most young, healthy individuals the eGFR will be >90 mL/min/1.73m2. The eGFR declines with age. An eGFR of 60-89 may be normal in some populations, particularly the elderly, for whom the CKD-EPI formula has not been extensively validated. Use of the eGFR is not recommended in the following populations: Individuals with unstable creatinine concentrations, including patients and those with serious co-morbid conditions. Patients with extremes in muscle mass or diet. The data above are obtained from the National Kidney Disease Education Program ( NKDEP) which additionally recommends that when the eGFR is used in patients with extremes of body mass index for purposes of drug dosing, the eGFR should be mul tiplied by the estimated BMI. CARDIAC ENZYMES 1 2 3 Most recent to oldest [Reference Range]: 64 unit/L (05/04/16 6:26 AM) 59 unit/L (05/04/16 1:57 AM) 69 unit/L (05/03/16 9:58 PM) Total CK [12-191 unit/L] <0.5 ng/mL (05/03/16 9:58 PM) CK MB [0.5-3.6 ng/mL] <0.7 (05/03/16 9:58 PM) CK MB Index [0.0-2.5] <0.02 ng/mL (05/04/16 6:26 AM) <0.02 ng/mL (05/04/16 1:57 AM) <0.02 ng/mL (05/03/16 9:58 PM) Troponin-I [0.00-0.40 ng/mL] 33 pg/mL (05/03/16 9:58 PM) BNP [<=100 pg/mL] LIPIDS 1 2 3 Most recent to oldest [Reference Range]: 4.11 (05/04/16 6:26 AM) CHD Risk [4.00-7.30] 156 mg/dL (05/04/16 6:26 AM) Chol [<=199 mg/dL] 124 mg/dL (05/04/16 6:26 AM) Trig [<=149 mg/dL] 38 mg/dL *LOW* (05/04/16 6:26 AM) HDL [>=61 mg/dL] 93 mg/dL (05/04/16 6:26 AM) LDL (Calculated) [<=99 mg/dL] 25 *NA* (05/04/16 6:26 AM) VLDL HEMATOLOGY 1 2 3 Most recent to oldest [Reference Range]: 11.9 K/CMM *HI* (05/04/16 10:48 AM) 11.1 K/CMM *HI* (05/03/16 9:58 PM) WBC [3.7-10.4 K/CMM] 5.72 M/CMM (05/04/16 10:48 AM) 5.68 M/CMM (05/03/16 9:58 PM) RBC [4.70-6.10 M/CMM] 15.1 g/dL (05/04/16 10:48 AM) 15.0 g/dL (05/03/16 9:58 PM) Hgb [14.0-18.0 g/dL] 45.5 % (05/04/16 10:48 AM) 45.4 % (05/03/16 9:58 PM) Hct [42.0-54.0 %] 79.5 fL *LOW* (05/04/16 10:48 AM) 79.9 fL *LOW* (05/03/16 9:58 PM) MCV [80.0-94.0 fL] 26.3 pg *LOW* (05/04/16 10:48 AM) 26.4 pg *LOW* (05/03/16 9:58 PM) MCH [27.0-31.0 pg] 33.1 g/dL (05/04/16 10:48 AM) 33.1 g/dL (05/03/16 9:58 PM) MCHC [32.0-36.0 g/dL] 14.2 % (05/04/16 10:48 AM) 14.0 % (05/03/16 9:58 PM) RDW [11.5-14.5 %] 181 K/CMM (05/04/16 10:48 AM) 196 K/CMM (05/03/16 9:58 PM) Platelet [133-450 K/CMM] 9.3 fL (05/04/16 10:48 AM) 9.4 fL (05/03/16 9:58 PM) MPV [7.4-10.4 fL] 55.9 % (05/04/16 10:48 AM) 53.5 % (05/03/16 9:58 PM) Segs [45.0-75.0 %] 34.3 % (05/04/16 10:48 AM) 36.4 % (05/03/16 9:58 PM) Lymphocytes [20.0-40.0 %] 6.0 % (05/04/16 10:48 AM) 6.7 % (05/03/16 9:58 PM) Monocytes [2.0-12.0 %] 2.7 % (05/04/16 10:48 AM) 2.6 % (05/03/16 9:58 PM) Eosinophils [0.0-4.0 %] 1.1 % *HI* (05/04/16 10:48 AM) 0.8 % (05/03/16 9:58 PM) Basophils [0.0-1.0 %] 6.6 K/CMM (05/04/16 10:48 AM) 5.9 K/CMM (05/03/16 9:58 PM) Segs-Bands # [1.5-8.1 K/CMM] 4.1 K/CMM (05/04/16 10:48 AM) 4.0 K/CMM (05/03/16 9:58 PM) Lymphocytes # [1.0-5.5 K/CMM] 0.7 K/CMM (05/04/16 10:48 AM) 0.7 K/CMM (05/03/16 9:58 PM) Monocytes # [0.0-0.8 K/CMM] 0.3 K/CMM (05/04/16 10:48 AM) 0.3 K/CMM (05/03/16 9:58 PM) Eosinophils # [0.0-0.5 K/CMM] 0.1 K/CMM (05/04/16 10:48 AM) 0.1 K/CMM (05/03/16 9:58 PM) Basophils # [0.0-0.2 K/CMM] Immunizations No data available for this section Procedures Procedure Date Related Diagnosis Body Site Closure of lower leg1 1steel sloane in left leg Social History Social History Type Response Substance Abuse Use: None. Alcohol Never Smoking Status Former smoker; Exposure to Tobacco Smoke None; Cigarette Smoking Last 365 Days No; Reg Smoking Cessation Counseling No Assessment and Plan Extracted from: Title: Clinical Document Author: Leonid Manuel MD Date: 05/04/16 PATIENT NAME: LUC BARNES ATTENDING PHYSICIAN: DHIRAJ CHRIS DATE OF ADMISSION: 05/04/2016 * * * CC: "headache and had chest pain earlier" REASON FOR ADMISSION: CP HISTORY OF PRESENT ILLNESS: 50 yo man with PMHx of HTN, smoking and DM presenting to ED with hyperglycemia since 1930 yesterday. Pt reports that he started to experience palpitations, blurry vision, headache and intermittent chest as well at around 1900 yesterday. Pt admits that he smoked 2 packs a day for 20 years and stopped smoking in 1994. Pt reports that he takes his medications on time and has no history of heart problems. Pt claims his CP is "like pins and needles" sensation and denies SOB, PEDROZA, orthopnea, syncope. He admits to persistent occipital DHALIWAL for 3 days and onset of his CP and blurred vision since 19:00 on 05/03/16. Routine labs in the ED revealed BG of 333, negative troponins, negative CXR. He is on glyburide/metformin and lantus nightly and swears to compliance with his prescribed meds. CXR was negative and EKG showed NSR. He claims all of his symptoms started after ingesting coffee. PAST MEDICAL HISTORY: as per HPI. PAST SURGICAL HISTORY: none FAMILY HISTORY: mother wiht DM. ALLERGIES: Allergies (1) ActiveReaction JanuviaNovonnie documented HOME MEDICATIONS: Please see medical reconciliation form. SOCIAL HISTORY: significant smoking hx, no EtOH, no drug use. REVIEW OF SYSTEMS: 12-point review of systems negative except for that detailed in above HPI PHYSICAL EXAMINATION: VitalsTmp(F)[id number] 05/04 [id number]--- 05/04 01:[id number]--- 05/03 21:[id number]--- 24 Hr Tmax: 98.5F (36.94c) at 05/03 21:29Vital Signs are the last 5 in the past 48 hours. I&ORecordInOutBal 24hr Tot 0 0 0 24hr Tot 0 0 0 GENERAL: in no apparent distress at this time. HEENT: EOMI NECK: supple, no jugular venous distention, no masses, no bruits CARDIOVASCULAR: regular rate and rhythm, s1 and s2 present, no murmurs, rubs or gallops LUNGS: clear to auscultation bilaterally, no wheezes, rales or rhonchi. GASTROINTESTINAL: soft, non-tender, non-distended positive bowel sounds in all four quadrants, no fluid wave appreciated EXTREMITIES: no clubbing, cyanosis or edema, pulses 2+ bilaterally and symmetric. NEUROLOGICAL: intact, no gross deficits noted SKIN: warm, no erythema, ecchymoses, purpura or petechiae, no jaundice, no diaphoresis LABORATORY DATA: Labs (Last four charted values) WBC H 11.1(MAY 03) Hgb 15.0(MAY 03) Hct 45.4(MAY 03) Plt 196(MAY 03) Na 136(MAY 03) K 3.9(MAY 03) CO2 26(MAY 03) Cl 102(MAY 03) Cr 0.84(MAY 03) BUN 12(MAY 03) Glucose Random H 333(MAY 03) Ca 8.9(MAY 03) Troponin <0.02(MAY 04)<0.02(MAY 03) CK MB <0.5(MAY 03) Total CK 59(MAY 04)69(MAY 03) Radiology: XAM: Chest 1view DX DATE: 05/03/2016 9:44 PM TEAM TRUCK DRIVER INDICATION: Chest pain COMPARISON: None. IMPRESSION: Grossly normal cardiac silhouette and mediastinum. No focal consolidation, significant pleural effusion or pneumothorax. Marked elevation of the right hemidiaphragm. Study: Brain wo contrast CT Clinical Indication: Weakness/pt c/o dizziness and CP 2 hrs ago. ems reports BG 375 and states after putting pt on 2L o2 chest pain went away. pt denies any pain at this time and is calm in triage. hx of htn and dm Comparison: None TECHNIQUE: Multiple axial CT images of the brain were acquired without the administration of intravenous contrast. Coronal and sagittal reconstructions were obtained. CT radiation dose DLP: 981.84 mGy-cm FINDINGS: The brain parenchyma is normal in volume and morphology. No acute intracranial hemorrhage, mass effect, midline shift, or hydrocephalus is seen. There are no extra-axial fluid collections. The visualized paranasal sinuses and mastoid air cells are well aerated. IMPRESSION: No acute intracranial abnormality. Electrocardiogram: Time 05/03/2016 21:39, rate 61, normal sinus rhythm, No ST-T changes, no ectopy, normal MN & QRS intervals, EP Interp, [place] is normal. , QT interval WNL. Assessment&Plan: 50 yo man with above PMHx presents with hyperglycemia, chest pain, DHALIWAL and blurred vision over the past several days. 1. CP 2. BLURRED VISION 3. OCCIPITAL DHALIWAL 4. HTN 5. UNCONTROLLED DM 6. SMOKING PLAN: 1. ED staff has consulted Dr. Quinonez of cardiology for recommendations. Will continue to trend cardiac enzymes. 2. CT/head negative for acute pathology. 3. onset several days ago. possible atypical migraine presentation. 4. reconcile home BP meds. 5. will reconcile home insulin and PO meds but if patient is compliant, will need complete reevaluation of his hypoglycemic regimen. Will add medium correctional dose SSI. 6. Will be referred to smoking cessation.
--- OUTSIDE RECORDS SUMMARY | 2018-03-22 12:07 | XMS REPORT | Continuity of Care Document ---
Author Author [facility] Interface Address Unknown Phone Unavailable Problems Problem Status Onset Date Classification Date Reported Comments Source CHEST PAIN, FEVER Active 05/03/2016 [facility] Diabetes Resolved Problem 05/07/2016 [facility] HTN with goal to be determined(<span [id number]</span>) Resolved Problem 05/07/2016 [facility] Medications Medication Details Route Status Patient Instructions Ordering Provider Order Date Source Aspirin 325 MG Oral Tablet 325 mg=1 tab, PO, Daily, 0 Refill(s) Active 05/04/2016 [facility] Saline Flush 0.9% 10 ml, Route: IVP, Drug Form: INJ, Dosing Weight 93.182, kg, Q12H, Start date: 05/04/16 9:00:00 ROAD GRADER OPERATOR, Duration: 30 day, Stop date: 06/02/16 21:00:00 CSTNotes: (Same as: BD Posiflush) Inactive 05/04/2016 [facility] Lisinopril 10 mg, 2 tab, Route: PO, Drug form: TAB, Daily, Dosing Weight 93.182, kg, Start date: 05/04/16 9:00:00 RO[address] GRADER OPERATOR, Duration: 30 day, Stop date: 06/02/16 9:00:00 CSTNotes: (Same as: Prinivil, Zestril) Inactive 05/04/2016 [facility] Aspirin 325 MG Oral Tablet 325 mg, 1 tab, Route: PO, Drug form: TAB, Daily, Dosing Weight 93.182, kg, Start date: 05/04/16 9:00:00 RO[address] GRADER OPERATOR, Duration: 30 day, Stop date: 06/02/16 9:00:00 CSTNotes: Take with food. Inactive 05/04/2016 [facility] Glyburide 5 MG / Metformin hydrochloride 500 MG Oral Tablet 2 tab, Route: PO, Drug Form: TAB, Dosing Weight 93.182, kg, BID-Meals, Start date: 05/04/16 8:00:00 [address] GRADER OPERATOR, Duration: 30 day, Stop date: 06/02/16 17:00:00 RO[address] GRADER OPERATOR Inactive 05/04/2016 [facility] Glucophage 500 mg, 1 tab, Route: PO, Drug form: TAB, BID- Meals, Start date: 05/04/16 8:00:00 [address] GRADER OPERATOR, Duration: 30 day, Stop date: 06/02/16 17:00:00 CSTNotes: (Same as: Glucophage) Take with meal Inactive 05/04/2016 [facility] DiaBeta 5 mg, 1 tab, Route: PO, Drug form: TAB, BID-Meals, Start date: 05/04/16 8:00:00 [address] GRADER OPERATOR, Duration: 30 day, Stop date: 06/02/16 17:00:00 CSTNotes: (Same as: Micronase, Diabeta) Take with meals. Inactive 05/04/2016 [facility] nateglinide 120 mg, 1 tab, Route: PO, Drug form: TAB, TID- Before Meals, Dosing Weight 93.182, kg, Start date: 05/04/16 7:30:00 [address] GRADER OPERATOR, Duration: 30 day, Stop date: 06/02/16 16:30:00 CSTNotes: Starlix - anti-diabet ic agent Take Nateglinide 10 minutes before each meal (Same as: Starlix) Inactive 05/04/2016 [facility] nateglinide 120 mg oral tablet 120 mg=1 tab, PO, TID-Before Meals, # 270 tab, 0 Refill(s) Active 05/04/2016 [facility] lisinopril 10 mg oral tablet 10 mg=1 tab, PO, Daily, # 30 tab, 0 Refill(s) Active 05/04/2016 [facility] Glyburide 5 MG / Metformin hydrochloride 500 MG Oral Tablet 2 tab, PO, BID-Meals, # 60 tab, 0 Refill(s) Active 05/04/2016 [facility] Insulin, Aspart, Human 2 unit, 0.02 mL, Route: SUB-Q, Drug form: SOLN, TID-Before Meals, Dosing Weight 93.182, kg, PRN Blood Glucose Results, Start date: 05/04/16 1:34:00 RO[address] GRADER OPERATOR, Duration: 30 day, Stop date: 06/03/16 1:33:00 CSTNotes: Roll in palms of hands gently; Do not shake vigorously. (Same as: NovoLOG) "single patient use only" WASTE: F/P - Black; E - Municipal Trash Bin Stable for 28 days at room temperature. Expires in days from Date Inactive 05/04/2016 [facility] Glucagon 1 mg, Route: IM, Drug form: PDR/INJ, PRN, Dosing Weight 93.182, kg, PRN Blood Glucose Results, Start date: 05/04/16 1:34:00 [address] GRADER OPERATOR, Duration: 30 day, Stop date: 06/03/16 1:33:00 [address] GRADER OPERATOR Inactive 05/04/2016 [facility] Dextrose 50% Syringe 25 gm, 50 mL, Route: IVP, Drug Form: INJ, Dosing Weight 93.182, kg, PRN, PRN Blood Glucose Results, Start date: 05/04/16 1:34:00 [address] GRADER OPERATOR, Duration: 30 day, Stop date: 06/03/16 1:33:[address] GRADER OPERATOR Inactive 05/04/2016 [facility] Saline Flush 0.9% 10 ml, Route: IVP, Drug Form: INJ, Dosing Weight 93.182, kg, PRN, PRN Line Flush, Start date: 05/04/16 1:32:00 [address] GRADER OPERATOR, Duration: 30 day, Stop date: 06/03/16 1:31:00 CSTNotes: (Same as: BD Posiflush) Inactive 05/04/2016 [facility] Ondansetron 4 mg, 1 tab, Route: PO, Drug form: TAB, Q8H, Dosing Weight 93.182, kg, PRN Nausea & Vomiting, Start date: 05/04/16 1:32:00 [address] GRADER OPERATOR, Duration: 30 day, Stop date: 06/03/16 1:31:00 CSTNotes: (Same as: Zofran) Inactive 05/04/2016 [facility] Temazepam 15 mg, 1 cap, Route: PO, Drug form: CAP, Bedtime, Dosing Weight 93.182, kg, PRN Insomnia, Start date: 05/04/16 1:32:00 [address] GRADER OPERATOR, Duration: 30 day, Stop date: 06/03/16 1:31:00 CSTNotes: (Same As: Restoril) Inactive 05/04/2016 [facility] Acetaminophen 650 mg, 2 tab, Route: PO, Drug form: TAB, Q4H, Dosing Weight 93.182, kg, PRN Headache 1-5, Start date: 05/04/16 1:32:00 [address] GRADER OPERATOR, Duration: 30 day, Stop date: 06/03/16 1:31:00 CSTNotes: Do not exceed 4 gm /day. (Same as: Tylenol) Inactive 05/04/2016 [facility] Nitroglycerin 0.4 mg, 1 tab, Route: SL, Drug form: TAB, Q5Min, Dosing Weight 93.182, kg, PRN Chest Pain, Start date: 05/04/16 1:32:00 [address] GRADER OPERATOR, Duration: 3 doses or times, Stop date: Limited # of timesNotes: (Same as:N itroquick, Nitrostat) "Do Not Crush" Sublingual tablet Inactive 05/04/2016 [facility] Morphine 4 mg, 1 mL, Route: IVP, Drug form: SOLN, Q2H, Dosing Weight 93.182, kg, PRN Pain Score 7-10, Start date: 05/04/16 1:32:00 [address] GRADER OPERATOR, Duration: 30 day, Stop date: 06/03/16 1:31:00 CSTNotes: (Same as:MORPhine Sulfate) Inactive 05/04/2016 [facility] Insulin regular 5 unit, 0.05 mL, Route: IVP, Drug form: INJ, ONCE, Dosing Weight 93.182, kg, Priority: STAT, Start date: 05/04/16 0:23:00 RO[address] GRADER OPERATOR, Stop date: 05/04/16 0:23:00 CSTNotes: (Same as: Humulin R and NovoLIN R) WASTE: F/P - Black; E - Municipal Trash Bin (Do not shake) Inactive 05/04/2016 [facility] Morphine 4 mg, 1 mL, Route: IV, Drug form: SOLN, ONCE, Dosing Weight 93.182, kg, Priority: STAT, Start date: 05/04/16 0:23:00 RO[address] GRADER OPERATOR, Stop date: 05/04/16 0:23:00 CSTNotes: (Same as:MORPhine Sulfate) Inactive 05/04/2016 [facility] Zofran 8 mg, Route: IVP, Drug form: INJ, ONCE, Dosing Weight 93.182, kg, Priority: STAT, Start date: 05/04/16 0:23:00 [address] GRADER OPERATOR, Stop date: 05/04/16 0:23:00 RO[address] GRADER OPERATOR Inactive 05/04/2016 [facility] Aspirin 325 MG Oral Tablet 325 mg, 1 tab, Route: PO, Drug form: TAB, ONCE, Dosing Weight 93.182, kg, Priority: STAT, Start date: 05/04/16 0:23:00 [address] GRADER OPERATOR, Stop date: 05/04/16 0:23:00 CSTNotes: Take with food. Inactive 05/04/2016 [facility] Saline Flush 0.9% 10 mL, Route: IVP, Drug Form: INJ, Dosing Weight 93.182, kg, PRN, PRN Line Flush, Start date: 05/03/16 21:44:00 RO[address] GRADER OPERATOR, Duration: 30 day, Stop date: 06/02/16 21:43:00 CSTNotes: (Same as: BD Posiflush) No Longer Active 05/04/2016 [facility] Allergies, Adverse Reactions, Alerts Substance Category Reaction Severity Reaction type Status Date Reported Comments Source Jaelyn Assertion Drug allergy Active [facility] Immunizations Immunization Date Given Site Status Last Updated Comments Source Results Order Name Results Value Reference Range Date Interpretation Comments Source HEMATOLOGY Eosinophils # 0.3 K/CMM 0.0 - 0.5 05/04/2016 [facility] HEMATOLOGY Segs-Bands # 6.6 K/CMM 1.5 - 8.1 05/04/2016 [facility] Monocytes # 0.7 K/CMM 0.0 - 0.8 05/04/2016 [facility] HEMATOLOGY Lymphocytes # 4.1 K/CMM 1.0 - 5.5 05/04/2016 [facility] Basophils # 0.1 K/CMM 0.0 - 0.2 05/04/2016 [facility] HEMATOLOGY Segs 55.9 % 45.0 - 75.0 05/04/2016 [facility] HEMATOLOGY Monocytes 6.0 % 2.0 - 12.0 05/04/2016 [facility] HEMATOLOGY Basophils 1.1 % 0.0 - 1.0 05/04/2016 [facility] HEMATOLOGY Eosinophils 2.7 % 0.0 - 4.0 05/04/2016 [facility] Lymphocytes 34.3 % 20.0 - 40.0 05/04/2016 [facility] RDW 14.2 % 11.5 - 14.5 05/04/2016 [facility] MCH 26.3 pg 27.0 - 31.0 05/04/2016 [facility] HEMATOLOGY MCV 79.5 fL 80.0 - 94.0 05/04/2016 [facility] HEMATOLOGY MPV 9.3 fL 7.4 - 10.4 05/04/2016 [facility] HEMATOLOGY Platelet 181 K/CMM 133 - 450 05/04/2016 [facility] HEMATOLOGY MCHC 33.1 g/dL 32.0 - 36.0 05/04/2016 [facility] HEMATOLOGY Hct 45.5 % 42.0 - 54.0 05/04/2016 [facility] HEMATOLOGY Hgb 15.1 g/dL 14.0 - 18.0 05/04/2016 [facility] HEMATOLOGY WBC 11.9 K/CMM 3.7 - 10.4 05/04/2016 [facility] HEMATOLOGY RBC 5.72 M/CMM 4.70 - 6.10 05/04/2016 [facility] CARDIAC ENZYMES Total CK 64 unit/L 12 - 191 05/04/2016 [facility] CARDIAC ENZYMES Troponin-I null 0.00 - 0.40 05/04/2016 [facility] LIPIDS VLDL 25 05/04/2016 [facility] LIPIDS LDL (Calculated) 93 mg/dL <=99 mg/dL 05/04/2016 [facility] LIPIDS CHD Risk 4.11 4.00 - 7.30 05/04/2016 [facility] LIPIDS HDL 38 mg/dL >=61 mg/dL 05/04/2016 [facility] LIPIDS Trig 124 mg/dL <=149 mg/dL 05/04/2016 [facility] LIPIDS Chol 156 mg/dL <=199 mg/dL 05/04/2016 [facility] CARDIAC ENZYMES Total CK 59 unit/L 12 - 05/04/2016 [facility] CARDIAC ENZYMES Troponin-I null 0.00 - 0.40 05/04/2016 [facility] CARDIAC ENZYMES CK MB Index null 0.0 - 2.5 05/04/2016 [facility] CARDIAC ENZYMES BNP 33 pg/mL <=100 pg/mL 05/04/2016 [facility] CARDIAC ENZYMES CK MB null 0.5 - 3.6 05/04/2016 [facility] CARDIAC ENZYMES Troponin-I null 0.00 - 0.40 05/04/2016 [facility] CARDIAC ENZYMES Total CK 69 unit/L 12 - 191 05/04/2016 [facility] ELECTROLYTES AGAP 11.9 meq/L 10.0 - 20.0 05/04/2016 [facility] ELECTROLYTES B/C Ratio 14 6 - 25 05/04/2016 [facility] ELECTROLYTES Bili Total 0.3 mg/dL 0.2 - 1.3 05/04/2016 [facility] ELECTROLYTES Alk Phos 103 unit/L 39 - 136 05/04/2016 [facility] ELECTROLYTES eGFR 102 mL/min/1.73m2 05/04/2016 Result Comment: The eGFR is calculated using the [...] from the National Kidney Disease Education Program (NKDEP) which additionally recommends that when the eGFR is used in patients with extremes of body mass index for purposes of drug dosing, the eGFR should be multiplied by the estimated BMI. [facility] ELECTROLYTES A/G Ratio 0.9 0.7 - 1.6 05/04/2016 [facility] ELECTROLYTES Globulin 3.8 g/dL 2.7 - 4.2 05/04/2016 [facility] ELECTROLYTES Calcium Lvl 8.9 mg/dL 8.5 - 10.5 05/04/2016 [facility] ELECTROLYTES CO2 26 meq/L 24 - 32 05/04/2016 [facility] ELECTROLYTES Total Protein 7.4 g/dL 6.4 - 8.4 05/04/2016 [facility] ELECTROLYTES Albumin Lvl 3.6 g/dL 3.5 - 5.0 05/04/2016 [facility] ELECTROLYTES Creatinine Lvl 0.84 mg/dL 0.50 - 1.40 05/04/2016 [facility] ELECTROLYTES Potassium Lvl 3.9 meq/L 3.5 - 5.1 05/04/2016 [facility] ELECTROLYTES Sodium Lvl 136 meq/L 135 - 145 05/04/2016 [facility] ELECTROLYTES Chloride Lvl 102 meq/L 95 - 109 05/04/2016 [facility] ELECTROLYTES Glucose Lvl 333 mg/dL 70 - 99 05/04/2016 [facility] ELECTROLYTES BUN 12 mg/dL 7 - 22 05/04/2016 [facility] ELECTROLYTES ALT 47 unit/L 0 - 65 05/04/2016 [facility] ELECTROLYTES AST 15 unit/L 0 - 37 05/04/2016 [facility] HEMATOLOGY Segs-Bands # 5.9 K/CMM 1.5 - 8.1 05/04/2016 [facility] HEMATOLOGY Lymphocytes # 4.0 K/CMM 1.0 - 5.5 05/04/2016 [facility] HEMATOLOGY Basophils 0.8 % 0.0 - 1.0 05/04/2016 [facility] HEMATOLOGY Monocytes # 0.7 K/CMM 0.0 - 0.8 05/04/2016 [facility] HEMATOLOGY Eosinophils 2.6 % 0.0 - 4.0 05/04/2016 [facility] Basophils # 0.1 K/CMM 0.0 - 0.2 05/04/2016 [facility] Eosinophils # 0.3 K/CMM 0.0 - 0.5 05/04/2016 [facility] Segs 53.5 % 45.0 - 75.0 05/04/2016 [facility] Lymphocytes 36.4 % 20.0 - 40.0 05/04/2016 [facility] Monocytes 6.7 % 2.0 - 12.0 05/04/2016 [facility] Platelet 196 K/CMM 133 - 450 05/04/2016 [facility] MCHC 33.1 g/dL 32.0 - 36.0 05/04/2016 [facility] MPV 9.4 fL 7.4 - 10.4 05/04/2016 [facility] RDW 14.0 % 11.5 - 14.5 05/04/2016 [facility] MCV 79.9 fL 80.0 - 94.0 05/04/2016 [facility] Hgb 15.0 g/dL 14.0 - 18.0 05/04/2016 [facility] RBC 5.68 M/CMM 4.70 - 6.10 05/04/2016 [facility] MCH 26.4 pg 27.0 - 31.0 05/04/2016 [facility] Hct 45.4 % 42.0 - 54.0 05/04/2016 [facility] WBC 11.1 K/CMM 3.7 - 10.4 05/04/2016 [facility] Brain wo contrast CT Brain wo contrast CT Addendum: I agree with the above report Study: Brain wo contrast CT Clinical Indication: [...] well aerated. IMPRESSION: No acute intracranial abnormality. SL: MORELIA 05/04/2016 - - Read by: Karla Garibay MD Dictated Date/time: 05/04/16 01:30 Electronically Signed by: Karla Garibay MD 05/04/16 01:31 FINAL REPORT - - Read by: Brent Keane MD Dictated Date/time: 05/04/16 01:28 Electronically Signed by: Brent Keane MD 05/04/16 01:29 FINAL REPORT [facility] Chest 1view DX Chest 1view DX EXAM: Chest 1view DX DATE: 05/03/2016 9:[address] OPERATOR INDICATION: Chest pain COMPARISON: None. IMPRESSION: Grossly normal cardiac silhouette and mediastinum. No focal consolidation, significant pleural effusion or pneumothorax. Marked elevation of the right hemidiaphragm. SL: [id number] 05/03/2016 - - Read by: Jonny Pedersen MD Dictated Date/time: 05/03/16 22:05 Electronically Signed by: Jonny Pedersen MD 05/03/16 22:06 FINAL REPORT [facility] Vital Signs Vital Sign Value Date Comments Source Heart Rate 59 05/04/2016 [facility] Temperature Oral (F) 98.0 F 05/04/2016 [facility] Respitory Rate 18 05/04/2016 [facility] Systolic (mm Hg) 132 05/04/2016 [facility] Diastolic (mm Hg) 81 05/04/2016 [facility] Weight 93.18 05/04/2016 [facility] Heart Rate 52 05/04/2016 [facility] Temperature Oral (F) 97.8 F 05/04/2016 [facility] Systolic (mm Hg) 118 05/04/2016 [facility] Diastolic (mm Hg) 74 05/04/2016 [facility] Respitory Rate 18 05/04/2016 [facility] Temperature Oral (F) 98 F 05/04/2016 [facility] Respitory Rate 16 05/04/2016 [facility] Systolic (mm Hg) 145 05/04/2016 [facility] Diastolic (mm Hg) 80 05/04/2016 [facility] Heart Rate 63 05/04/2016 [facility] Weight 93.182 05/04/2016 [facility] Height 165.1 cm 05/04/2016 [facility] BMI Calculated 34.19 05/04/2016 [facility] Weight 93.182 05/04/2016 [facility] Encounters Location Location Details Encounter Type Encounter Number Reason For Visit Attending Provider ADM Date DC Date Status Source [facility] Observation [id number] Dhiraj Chris 05/04/2016 05/04/2016 [facility] Procedures Procedure Code Date Perfomer Comments Source Closure of lower leg<sup>1</sup> [id number] steel sloane in left leg [facility]
[2018-03-22] MEDS ORDERED: SODIUM CHLORIDE 0.9% 1000ML 1,000 ML IV SCH (12:45)
[2018-03-22 13:07] LABS: BILIRUBIN,URINE NEGATIVE (NEGATIVE); CLARITY,URINE SL CLOUDY (CLEAR); COLOR,URINE YELLOW (YELLOW); KETONES,URINE NEGATIVE (NEGATIVE); LEUKOCYTE ESTERASE ,URINE NEGATIVE (NEGATIVE); NITRITE,URINE NEGATIVE (NEGATIVE); PROTEIN,URINE DIPSTICK TRACE (NEGATIVE); URINE UROBILINOGEN 0.2 mg/dL (0.2 - 1)
[2018-03-22 13:17] LABS: TRANSITIONAL EPI CELLS,URINE RARE; WBC,URINE (MAN) 0-5 /HPF (0-5)
--- NOTE | 2018-03-22 13:57 | Diagnostic Imaging Report ---
PROCEDURE:US GALLBLADDER COMPARISON:None. INDICATIONS:ABD PAIN TECHNIQUE: Hobbs-scale and color Doppler transverse and longitudinal images of the right upper quadrant of the abdomen were obtained. FINDINGS: Liver: Measures 15.8 cm in the midclavicular line. Increased echogenicity compatible with fatty infiltration. Main portal vein: Measures 8 mm with normal forward flow Gallbladder: Sludge present within the gallbladder. No shadowing stones. No wall thickening. Common Bile Duct: Measures 0.3 cm Sonographic Corona's sign: Negative Right kidney: Measures 10.4 x 6.7 x 5.2 cm cm. Normal echogenicity. No solid masses or hydronephrosis. Pancreas: Pancreatic tail not visualized. Inferior vena cava: Poorly seen Aorta: Poorly seen Ascites: None in the right upper quadrant of the abdomen. CONCLUSION: 1. Sludge within the gallbladder without shadowing stones or wall thickening 2. Increased echogenicity of the liver. Patrice Mckinney D.O. Dictated by: Patrice Mckinney D.O. on 03/22/2018 at 14:07 Electronically approved by: Patrice Mckinney D.O. on 03/22/2018 at 14:07
[2018-03-22 14:05] LABS: BASOPHILS # (AUTO) 0.1 (0.0-0.1); BASOPHILS % 0.6 % (0.0-1.0); EOSINOPHILS # (AUTO) 0.2 (0.0-0.4); EOSINOPHILS % 2.1 % (0.0-6.0); HEMATOCRIT 43.4 % (38.2-49.6); HEMOGLOBIN 14.3 g/dL (14.0-18.0); LYMPHOCYTES # (AUTO) 3.4 (1.0-3.2); MEAN CORPUSCULAR HEMOGLOBIN 26.5 pg (28-32); MEAN CORPUSCULAR HGB CONC 32.9 g/dL (31-35); MEAN CORPUSCULAR VOLUME 80.4 fL (81-99); MONOCYTES # (AUTO) 0.6 (0.2-0.8); MONOCYTES % 5.4 % (4.4-11.3); NEUTROPHILS # (AUTO) 6.7 (2.1-6.9); NEUTROPHILS % 60.6 % (38.7-80.0); PLATELET COUNT 242 x10e3/uL (140-360); RED CELL DISTRIBUTION WIDTH 13.7 % (11.7-14.4)
[2018-03-22 14:20] LABS: ALANINE AMINOTRANSFERASE 33 IU/L (0-55); ALBUMIN 3.6 g/dL (3.5-5.0); ALBUMIN/GLOBULIN RATIO 1.1 (0.8-2.0); ALKALINE PHOSPHATASE 66 IU/L (40-150); AMYLASE 60 U/L (25-125); ANION GAP 13.9 mmol/L (8-16); BLOOD UREA NITROGEN 14 mg/dL (7-26); BUN/CREATININE RATIO 17 (6-25); CALCIUM 8.8 mg/dL (8.4-10.2); CARBON DIOXIDE 23 mmol/L (22-29); CHLORIDE 100 mmol/L (98-107); CREATININE, SERUM 0.83 mg/dL (0.72-1.25); EST GLOMERULAR FILTRATION RATE > 60 ML/MIN (60-); GLUCOSE 192 mg/dL (74-118); LIPASE 17 U/L (8-78); POTASSIUM 3.9 mmol/L (3.5-5.1); SODIUM 133 mmol/L (136-145)
== END 2018-03-22 16:20 | disposition home or self-care (01) ==
LOC: ER 12:04
DX: R10.11 Right upper quadrant pain (principal); K80.20 Calculus of gallbladder without cholecystitis without obstruction; I10 Essential (primary) hypertension; E11.9 Type 2 diabetes mellitus without complications; E78.5 Hyperlipidemia, unspecified; Z87.891 Personal history of nicotine dependence
CPT/HCPCS: 36415; 76705; 80053; 81001; 82150; 83690; 85025; 99284; J7030